=== PATIENT | female | born 1965 | race African-American/Black ===

== ENCOUNTER 2017-02-09 14:32 | Emergency (ER) | payer OTHER ==
--- NOTE | 2017-02-09 15:17 | ER Document Report ---
ED Medical Screen (RME) - General Chief Complaint: Vomiting Stated Complaint: SHORTNESS OF BREATH Mode of Arrival: Wheelchair Information source: Patient TRAVEL OUTSIDE OF THE [place] IN LAST 30 DAYS: No - HPI Onset: Other - 3 DAYS Onset/Duration: Gradual Associated Symptoms: Headache, Nausea, Sweating, Vomiting Exacerbated by: Movement Relieved by: Remaining still Similar symptoms previously: No Recently seen / treated by doctor: No - Related Data Smoking: Non-smoker Frequency of alcohol use: None Drug Abuse: None Allergies/Adverse Reactions: No Known Allergies Allergy (Unverified 02/09/17 15:08) Past Medical History - General Information source: Patient - Social History Cigarette use (# per day): No Chew tobacco use (# tins/day): No Frequency of alcohol use: None Drug Abuse: None Lives with: Spouse/Significant other Family history: None - Past Medical History Cardiac Medical History: Reports: None Renal/ Medical History: Denies: Hx Peritoneal Dialysis Review of Systems - Review of Systems Constitutional: Diaphoresis EENT: No symptoms reported Cardiovascular: No symptoms reported Gastrointestinal: See HPI, Nausea, Vomiting Genitourinary: No symptoms reported Female Genitourinary: Post menopausal Neurological/Psychological: Headaches Physical Exam - Vital signs Vitals: Temp Pulse Resp BP Pulse Ox 100.0 F 142 H 20 116/72 96 02/09/17 14:44 02/09/17 14:44 02/09/17 14:44 02/09/17 14:44 02/09/17 14:44 Interpretation: Tachycardic. No: Hypotensive, Hypoxic, Tachypneic, Febrile - General General appearance: Alert In distress: None - HEENT Head: Normocephalic Eyes: Normal Conjunctiva: Normal Ears: Normal Nasal: Normal Mouth/Lips: Normal Mucous membranes: Dry Neck: Normal, Supple - Respiratory Respiratory status: No respiratory distress - Cardiovascular Rhythm: Regular, Tachycardia - Abdominal Inspection: Normal Distension: No distension - Extremities General upper extremity: Normal inspection General lower extremity: Normal inspection. No: Tender, Edema - Neurological Neuro grossly intact: Yes Course - Vital Signs Vital signs: Temp Pulse Resp BP Pulse Ox 100.0 F 142 H 20 116/72 96 02/09/17 14:44 02/09/17 14:44 02/09/17 14:44 02/09/17 14:44 02/09/17 14:44 - Laboratory Result Diagrams: 02/09/17 15:35 02/09/17 15:35 Laboratory results interpreted by me: 02/09/17 02/09/17 15:35 15:35 WBC 14.3 H MCV 101 H MCH 34.0 H RDW 14.8 H Seg Neutrophils % 89.9 H Lymphocytes % 5.4 L Absolute Neutrophils 12.8 H Sodium 136.1 L Carbon Dioxide 21 L Direct Bilirubin 0.6 H AST 53 H
[2017-02-09 16:11] LABS: ABSOLUTE LYMPHOCYTES (AUTO) 0.8 10^3/uL (0.5-4.7); ABSOLUTE MONOCYTES (AUTO) 0.6 10^3/uL (0.1-1.4); ABSOLUTE NEUT (AUTO) 12.8 10^3/uL (1.7-8.2); BASOPHILS % (AUTO) 0.3 % (0-2); EOSINOPHILS % (AUTO) 0.1 % (0-6); HEMATOCRIT 38.1 % (36.0-47.0); HEMOGLOBIN 12.8 g/dL (12.0-15.5); HGB HCT DIFFERENCE 0.3; LYMPHOCYTES % (AUTO) 5.4 % (13-45); MEAN CORPUSCULAR HGB CONC 33.7 g/dL (32.0-36.0); MEAN CORPUSCULAR VOLUME 101 fl (80-97); MONOCYTES % (AUTO) 4.3 % (3-13); RED BLOOD COUNT 3.77 10^6/uL (3.72-5.28); RED CELL DISTRIBUTION WIDTH 14.8 % (11.5-14.0); SEGMENTED NEUTROPHILS % (AUTO) 89.9 % (42-78); WHITE BLOOD COUNT 14.3 10^3/uL (4.0-10.5)
[2017-02-09 16:20] LABS: ALANINE AMINOTRANSFERASE 41 U/L (9-52); ALBUMIN 3.8 g/dL (3.5-5.0); ALKALINE PHOSPHATASE 96 U/L (38-126); ANION GAP 13 (5-19); ASPARTATE AMINO TRANSFERASE 53 U/L (14-36); BILIRUBIN,DIRECT 0.6 mg/dL (0.0-0.4); BILIRUBIN,TOTAL 1.2 mg/dL (0.2-1.3); BLOOD UREA NITROGEN 13 mg/dL (7-20); CALCIUM 9.3 mg/dL (8.4-10.2); CARBON DIOXIDE 21 mmol/L (22-30); CHLORIDE 102 mmol/L (98-107); CREATINE KINASE 44 U/L (30-135); CREATININE RESULT 0.88 mg/dL (0.52-1.25); GLUCOSE 101 mg/dL (75-110); POTASSIUM 4.5 mmol/L (3.6-5.0); SODIUM 136.1 mmol/L (137-145); TOTAL PROTEIN 7.4 g/dL (6.3-8.2)
[2017-02-09 16:32] LABS: CREATINE KINASE MB 0.33 ng/mL (<4.55); TROPONIN I < 0.012 ng/mL
--- NOTE | 2017-02-09 17:21 | ER Document Report ---
ED General - General Mode of Arrival: Wheelchair Information source: Patient TRAVEL OUTSIDE OF THE [place] IN LAST 30 DAYS: No - HPI Onset: Other - see HPI note Associated symptoms: Nausea, Vomiting Similar symptoms previously: No Recently seen / treated by doctor: No <KYMBERLY ANN - Last Filed: 02/09/17 19:25> <FELYPRESLEYGEORGIANA - Last Filed: 02/09/17 21:11> - General Chief Complaint: Vomiting Stated Complaint: SHORTNESS OF BREATH Notes: Patient is a 51-year-old female presents to the emergency department for cough, hematemesis, nosebleeds, and dizziness. Patient states the symptoms were onset Monday and have been constant. Patient states that she tried to work and felt very dizzy like she is going to pass out. Patient states that her back and shoulders are achy. Patient states that her nose was bleeding and she is also coughing with hematemesis. Patient also complains of chills and some slight abdominal pain. Patient denies any black or tarry stools. Patient has a history of GERD, hypertension, and hiatal hernia. Patient denies any history of an ulcer and denies any use of blood thinners. Patient states she had an endoscopy in October. Patient has no known allergies. Patient's primary care physician is Dr. Sibley with Dr. Blanc' office. (KYMBERLY ANN) - Related Data Allergies/Adverse Reactions: No Known Allergies Allergy (Unverified 02/09/17 15:08) Past Medical History - General Information source: Patient - Social History Smoking Status: Current Every Day Smoker Chew tobacco use (# tins/day): No Frequency of alcohol use: Social Drug Abuse: None Lives with: Spouse/Significant other Family History: None Patient has suicidal ideation: No Patient has homicidal ideation: No - Past Medical History Cardiac Medical History: Reports: Hx Hypertension GI Medical History: Reports: Hx Gastroesophageal Reflux Disease, Hx Hiatal Hernia Musculoskeltal Medical History: Reports Hx Arthritis Surgical Hx: Negative <KYMBERLY ANN - Last Filed: 02/09/17 19:25> Review of Systems - Review of Systems Constitutional: No symptoms reported EENT: See HPI Cardiovascular: See HPI, Dizziness Respiratory: See HPI, Cough, Short of breath Gastrointestinal: See HPI, Nausea, Vomiting Genitourinary: No symptoms reported Female Genitourinary: No symptoms reported Musculoskeletal: No symptoms reported Skin: No symptoms reported Hematologic/Lymphatic: No symptoms reported Neurological/Psychological: No symptoms reported -: Yes All other systems reviewed and negative <MANUELHEATHER TRISTANINE - Last Filed: 02/09/17 19:25> Physical Exam <SETHHEATHERKYMBERLY - Last Filed: 02/09/17 19:25> <GEORGIANA GUTIERREZ - Last Filed: 02/09/17 21:11> - Vital signs Vitals: Temp Pulse Resp BP Pulse Ox 100.0 F 142 H 20 116/72 96 02/09/17 14:44 02/09/17 14:44 02/09/17 14:44 02/09/17 14:44 02/09/17 14:44 - Notes Notes: GENERAL: Alert, interacts well. No acute distress. HEAD: Normocephalic, atraumatic.Tenderness with percussion to the frontal sinuses bilaterally and to the right maxillary sinuses. EYES: Pupils equal, round, and reactive to light. Extraocular movements intact. ENT: Oral mucosa is slightly dry, tongue midline. Nares patent, no nasal septal hematoma, no active bleeding or scabs. NECK: Full range of motion. Supple. Trachea midline. LUNGS: Clear to auscultation bilaterally, no wheezes, rales, or rhonchi. No respiratory distress. HEART: Tachycardia, regular rhythm. No murmurs, gallops, or rubs. ABDOMEN: Soft, non-tender. Non-distended. Bowel sounds present in all 4 quadrants. EXTREMITIES: Moves all 4 extremities spontaneously. No edema, radial and dorsalis pedis pulses 2/4 bilaterally. No cyanosis. NEUROLOGICAL: Alert and oriented x3. Normal speech. PSYCH: Normal affect, normal mood. SKIN: Warm, dry, normal turgor. No rashes or lesions noted. (KYMBERLY ANN) Course - Laboratory Result Diagrams: 02/09/17 15:35 02/09/17 15:35 <KYMBERLY ANN - Last Filed: 02/09/17 19:25> - Laboratory Result Diagrams: 02/09/17 15:35 02/09/17 15:35 <GEORGIANA GUTIERREZ - Last Filed: 02/09/17 21:11> - Re-evaluation Re-evalutation: 02/09/17 17:55 CBC shows leukocytosis, no anemia, CMP shows low CO2 and slightly low sodium, no renal failure, minimally elevated AST at 53, cardiac enzymes negative, head CT shows maxillary sinusitis, no signs of bleeding. Chest x-ray unremarkable. Given the lack of abdominal pain and no anemia I suspect that the hematemesis is actually coming from swallowed blood from her prior nosebleeds. Given her fevers and leukocytosis I will treat her acute sinusitis as bacterial sinusitis with antibiotics. We will do a trial of IV fluids here to see if we can resolve her hypotension and tachycardia. We will also give her Zofran to prevent vomiting and try oral liquids. 02/09/17 17:56 I believe the patient is very low risk for GI bleed as there is been no melena and no bright red blood per rectum, patient's abdomen is benign, she appears to be low risk for surgical intra-abdominal pathology at this time. 02/09/17 18:57 Patient feels much better after 2 L normal saline, blood pressure and heart rate normalized, patient has tolerated 3 cups of water without any difficulty. At this time patient will be discharged to home with antiemetics, antibiotics for her maxillary sinusitis as well as nasal steroids. Patient is to return for continuing vomiting, worsening diarrhea, any continuing dizziness or any new or concerning symptoms. Patient should also return for hematemesis not associated with nosebleeds. (GEORGIANA GUTIERREZ) - Vital Signs Vital signs: Temp Pulse Resp BP Pulse Ox 100.0 F 142 H 25 H 110/81 96 02/09/17 14:44 02/09/17 14:44 02/09/17 19:01 02/09/17 19:01 02/09/17 14:44 - Laboratory Laboratory results interpreted by me: 02/09/17 02/09/17 15:35 15:35 WBC 14.3 H MCV 101 H MCH 34.0 H RDW 14.8 H Seg Neutrophils % 89.9 H Lymphocytes % 5.4 L Absolute Neutrophils 12.8 H Sodium 136.1 L Carbon Dioxide 21 L Direct Bilirubin 0.6 H AST 53 H - EKG Interpretation by Me Additional EKG results interpreted by me: 02/09/17 18:58 EKG shows sinus cardiac rate of 116, normal axis, left atrial enlargement, normal vitals, no ST segment elevations or depressions, there are T wave inversions noted in lead 3, T-wave flattening in aVF, also T-wave flattening in V5 per my interpretation. (GEORGIANA GUTIERREZ) Discharge <KYMBERLY ANN - Last Filed: 02/09/17 19:25> <GEORGIANA GUTIERREZ - Last Filed: 02/09/17 21:11> - Discharge Clinical Impression: Left maxillary sinusitis, Nausea vomiting and diarrhea, Epistaxis Condition: Stable Disposition: HOME, SELF-CARE Additional Instructions: Please use the Zofran under your tongue to help prevent vomiting. If you continue to have vomiting despite the Zofran please return to the emergency department. Please use Imodium as directed [id number] for diarrhea. You have a bacterial infection of your sinus on the left. This is likely what is causing at least some of your fever and your headache. Please take the Augmentin as directed until it is gone. Please also use the nasal steroid spray. Please return should you continue to have any blood in your vomit without having any nosebleeds. Please return should you become increasingly weak or dizzy. Please also return should you develop tarry black stools or any blood in your stool. At present I feel the blood in your vomit is likely coming from blood that syou swallowed from the nosebleed however the amount of blood increases you need to return. Prescriptions: Amox Tr/Potassium Clavulanate [Augmentin 875-125 Tablet] 1 tab PO BID 10 Days Mometasone Furoate [Nasonex] 2 spray NS Q12 #1 spray.pump Ondansetron [Zofran Odt 4 mg Tablet] 1 - 2 tab PO Q4H PRN #15 tab.rapdis PRN Reason: For Nausea/Vomiting Forms: Return to Work Referrals: ENRIQUE SIBLEY PA-C [Primary Care Provider] - Follow up in 3-5 days Scribe Attestation: 02/09/17 21:10 I personally performed the services described in the documentation, reviewed and edited the documentation which was dictated to the scribe in my presence, and it accurately records my words and actions. (GEORGIANA GUTIERREZ) Scribe Documentation - Scribe Written by Scribe:: Kymberly Ann 02/09/17 19:20 acting as scribe for :: Lety <KYMBERLY ANN - Last Filed: 02/09/17 19:25>
[2017-02-09] MEDS: NORMAL SALINE 1000 ML 1,000 ML IV PRN ×2 (17:50→17:51)
[2017-02-09] MEDS ORDERED: ONDANSETRON HCL INJ/PF 4 MG/2 ML SDV IV ONE (17:55)
[2017-02-09 19:25] VITALS: BP 110/81
--- NOTE | 2017-02-10 08:12 | EKG REPORT ---
SEVERITY:- BORDERLINE ECG - SINUS TACHYCARDIA PROBABLE LEFT ATRIAL ABNORMALITY BORDERLINE T ABNORMALITIES, INFERIOR LEADS : Confirmed by: Aba Betts MD 10-Feb-2017 08:10:28
== END 2017-02-09 19:27 | disposition home or self-care (01) ==
LOC: ER 14:32
DX: J32.0 Chronic maxillary sinusitis (principal); R11.2 Nausea with vomiting, unspecified; R19.7 Diarrhea, unspecified; R04.0 Epistaxis; R11.10 Vomiting, unspecified; R06.02 Shortness of breath; R05 Cough; R42 Dizziness and giddiness; F17.200 Nicotine dependence, unspecified, uncomplicated
CPT/HCPCS: 93005; 99285; 36415; 82553; 82550; 85025; 80053; 84484; 71010; 70450; 93010; J7030

== ENCOUNTER 2019-07-13 21:59 | Emergency (ER) | payer OTHER ==
[2019-07-13] MEDS ORDERED: MECLIZINE HCL 25 MG TABLET PO ONE (23:06)
[2019-07-13] MEDS ORDERED: NORMAL SALINE 1000 ML 1,000 ML IV ONE (23:06)
--- NOTE | 2019-07-13 23:07 | ER Document Report ---
ED General - General Chief Complaint: Vertigo Stated Complaint: DIZZY/FALL Time Seen by Provider: 07/13/19 22:51 Primary Care Provider: DIEGO PARK MD [ACTIVE STAFF] - Follow up in 3-5 days (or your primary care. ) Notes: Patient is a 54-year-old female with history of vertigo that presents to the emergency department for chief complaint of dizziness. Patient states that she was standing in her kitchen, and abruptly started feeling dizzy, to the point where she fell down to the ground, did hit her face on the ground, causing a minor abrasion to her right cheek and contusing her right shoulder. She denies loss of consciousness, but states that she felt rather dizzy at that time, did not have any nausea or vomiting associated with it. Denies any associated chest pain, shortness of breath or difficulty breathing. She states he has had vertigo in the past, but this 1 seemed to be somewhat of a worse episode. She has somewhat of a dizziness feeling now but it is much improved from earlier. Denies any headache at this time, she states she is been congested recently, and had ear fullness recently as well. She also reports having some pain in her right shoulder she currently rates as a 3 out of 10 describes as a dull ache, not requesting any pain medication at this time. Past Medical History: Hypertension, vertigo Past Surgical History: Denies surgical history Social History: Admits to smoking cigarettes, denies alcohol or drug use. Family History: Reviewed and noncontributory for presenting illness Allergies: Reviewed, see documented allergy list. REVIEW OF SYSTEMS: Other than noted above, the 12 point review of systems was reviewed with the patient and were negative, all pertinent findings are included in the HPI. PHYSICAL EXAMINATION: Vital signs reviewed, nursing noted reviewed. GENERAL: Well-appearing, well-nourished and in no acute distress. HEAD: normocephalic. Superficial abrasion noted to the patient's, mild tenderness palpation, without step-off or deformity. EYES: Eyes appear normal, extraocular movements intact, sclera anicteric, conjunctiva are normal. ENT: nares patent, oropharynx clear without exudates. Moist mucous membranes. Mild inner ear effusions bilaterally, no bulging or erythema to the tympanic membranes bilaterally. NECK: Normal range of motion, supple without lymphadenopathy LUNGS: Breath sounds clear to auscultation bilaterally and equal. No wheezes rales or rhonchi. HEART: Regular rate and rhythm without murmurs ABDOMEN: Soft, nontender, normoactive bowel sounds. No rebound, guarding, or rigidity. No masses appreciated. EXTREMITIES: Mild right shoulder tenderness to palpation without gross deformity, she overall has good range of motion of her right shoulder, no tenderness over the clavicle. The rest the patient's extremity exam is grossly unremarkable. NEUROLOGICAL: No focal neurological deficits. Moves all extremities spontaneously Motor and sensory grossly intact on exam. PSYCH: Normal mood, normal affect. SKIN: Warm, Dry, normal turgor, no rashes or lesions noted on exposed skin TRAVEL OUTSIDE OF THE [place] IN LAST 30 DAYS: No - Related Data Allergies/Adverse Reactions: No Known Allergies Allergy (Verified 08/15/17 09:41) Past Medical History - Social History Smoking Status: Current Every Day Smoker Chew tobacco use (# tins/day): No Frequency of alcohol use: Occasional Drug Abuse: None Family History: None Patient has suicidal ideation: No Patient has homicidal ideation: No - Past Medical History Cardiac Medical History: Reports: Hx Hypertension Renal/ Medical History: Denies: Hx Peritoneal Dialysis GI Medical History: Reports: Hx Gastroesophageal Reflux Disease, Hx Hiatal Hernia Musculoskeletal Medical History: Reports Hx Arthritis - Immunizations Hx Diphtheria, Pertussis, Tetanus Vaccination: Yes Physical Exam - Vital signs Vitals: Pulse Ox 100 07/13/19 22:00 Course - Re-evaluation Re-evalutation: Patient seen and examined vital signs reviewed. Laboratory data and/or imaging were ordered as appropriate for the patient's presenting symptoms and complaint, with consideration of any critical or life threatening conditions that may be associated with their obtained history and exam as noted above. Patient was treated with IV fluids, and meclizine Results were reviewed when available and demonstrated negative CT imaging of the head, negative chest x-ray, blood work was unremarkable as well, as was UA. On exam patient was noted to have some mild bilateral inner ear effusions, which likely contributed to the patient's vertigo symptoms, low suspicion for central cause of vertigo. The patient was re-evaluated and was stable and improved, complaining of mild headache, was dosed with Tylenol for this. Is requesting work note. Evaluation was most consistent with dizziness, closed head injury. Results were discussed with the patient at this point, after careful consideration I feel that that patient can be discharged from the emergency department, the patient was educated treatments and reasons to return to the emergency department based on their presumed diagnosis as noted above, they were advised to followup with a primary care physician in 2-3 days. Patient was agr eeable to plan of care. *Note is created using voice recognition software and may contain spelling, syntax or grammatical errors. - Vital Signs Vital signs: Temp Pulse Resp BP Pulse Ox 97.9 F 72 17 136/83 H 99 07/13/19 22:13 07/13/19 22:13 07/13/19 23:01 07/13/19 23:01 07/13/19 23:01 - Laboratory Result Diagrams: 07/13/19 23:40 07/13/19 23:40 Laboratory results interpreted by me: 07/13/19 07/13/19 07/14/19 23:40 23:40 00:29 MCV 100 H Baso % (Auto) 2.1 H AST 51 H Urine Blood SMALL H - EKG Interpretation by Me Additional EKG results interpreted by me: EKG demonstrates sinus rhythm with a ventricular rate of 65 bpm, normal axis, normal intervals, no evidence of acute ischemia in this EKG, this is compared with a prior EKG from 02/09/2017, without significant change. Discharge - Discharge Clinical Impression: Dizziness Closed head injury Qualifiers: Encounter type: initial encounter Qualified Code(s): S09.90XA - Unspecified injury of head, initial encounter Condition: Stable Disposition: HOME, SELF-CARE Instructions: Dizziness ([facility]) Prescriptions: Meclizine HCl [Antivert 25 mg Tablet] 25 mg PO Q8H PRN #20 tablet PRN Reason: Dizziness Fluticasone Propionate [Flonase Nasal [place] 50 Mcg/[place] 16 gm] 1 spray NASL Q12 #1 inhaler Forms: Return to Work Referrals: DIEGO PARK MD [ACTIVE STAFF] - Follow up in 3-5 days (or your primary care. )
[2019-07-14 00:07] LABS: ABSOLUTE BASOPHILS # (AUTO) 0.1 10^3/uL (0.0-0.2); ABSOLUTE EOSINOPHILS # (AUTO) 0.1 10^3/uL (0.0-0.6); ABSOLUTE LYMPHOCYTES (AUTO) 2.7 10^3/uL (0.5-4.7); ABSOLUTE MONOCYTES (AUTO) 0.5 10^3/uL (0.1-1.4); ABSOLUTE NEUT (AUTO) 2.8 10^3/uL (1.7-8.2); BASOPHILS % (AUTO) 2.1 % (0-2); EOSINOPHILS % (AUTO) 0.9 % (0-6); HEMATOCRIT 43.9 % (36.0-47.0); HEMOGLOBIN 14.6 g/dL (12.0-15.5); LYMPHOCYTES % (AUTO) 43.5 % (13-45); MEAN CORPUSCULAR HEMOGLOBIN 33.4 pg (27.0-33.4); MEAN CORPUSCULAR HGB CONC 33.2 g/dL (32.0-36.0); MEAN CORPUSCULAR VOLUME 100 fl (80-97); MONOCYTES % (AUTO) 7.8 % (3-13); PLATELET COUNT 255 10^3/uL (150-450); RED BLOOD COUNT 4.38 10^6/uL (3.72-5.28); RED CELL DISTRIBUTION WIDTH 13.3 % (11.5-14.0); SEGMENTED NEUTROPHILS % (AUTO) 45.7 % (42-78); TOTAL CELLS COUNTED % (AUTO) 100 %; WHITE BLOOD COUNT 6.2 10^3/uL (4.0-10.5)
[2019-07-14 00:19] LABS: ALBUMIN 4.1 g/dL (3.5-5.0); ALKALINE PHOSPHATASE 83 U/L (38-126); ANION GAP 8 (5-19); ASPARTATE AMINO TRANSFERASE 51 U/L (14-36); BILIRUBIN,DIRECT 0.1 mg/dL (0.0-0.4); BLOOD UREA NITROGEN 8 mg/dL (7-20); CALCIUM 9.7 mg/dL (8.4-10.2); CARBON DIOXIDE 24 mmol/L (22-30); CHLORIDE 107 mmol/L (98-107); GLUCOSE 78 mg/dL (75-110); POTASSIUM 4.3 mmol/L (3.6-5.0); TOTAL PROTEIN 7.7 g/dL (6.3-8.2)
--- NOTE | 2019-07-14 00:29 | RADIOLOGY REPORT (SQ) ---
CLINICAL HISTORY: VERTIGO, RIGHT FACIAL INJURY COMPARISON: None. TECHNIQUE: CT HEAD WITHOUT IV CONTRAST on 07/13/2019 11:06 PM CDT This exam was performed according to our departmental dose-optimization program, which includes automated exposure control, adjustment of the mA and/or kV according to patient size and/or use of iterative reconstruction technique. FINDINGS: There is no acute hemorrhage, mass effect or midline shift. Garsia-white differentiation is preserved. There is no hydrocephalus. There is no significant volume loss for age. There are mild patchy hypodensities within the periventricular and subcortical white matter, consistent with microangiopathic ischemic changes. The calvarium is intact. Orbits and globes are unremarkable. There is a small mucous retention cyst in the anterior left maxillary sinus. Mastoid air cells are clear. IMPRESSION: No acute intracranial findings.
--- NOTE | 2019-07-14 00:29 | RADIOLOGY REPORT (SQ) ---
CLINICAL HISTORY: NEAR SYNCOPE COMPARISON: None. TECHNIQUE: XR CHEST 1 VIEW 07/13/2019 11:06 PM CDT FINDINGS: The heart is enlarged. Lungs are clear without consolidation, atelectasis, mass or edema. There is no pleural effusion. There is no pneumothorax. There are no acute osseous findings. IMPRESSION: Clear lungs.
[2019-07-14 00:44] LABS: APPEARANCE,URINE CLEAR; BILIRUBIN,URINE NEGATIVE (NEGATIVE); COLOR,URINE STRAW; GLUCOSE, URINE NEGATIVE (NEGATIVE); KETONES,URINE NEGATIVE (NEGATIVE); LEUKOCYTE ESTERASE,URINE NEGATIVE (NEGATIVE); NITRITE,URINE NEGATIVE (NEGATIVE); PROTEIN,URINE NEGATIVE (NEGATIVE); URINE SPECIFIC GRAVITY 1.003; UROBILINOGEN,URINE NEGATIVE mg/dL (<2.0)
[2019-07-14] MEDS ORDERED: ACETAMINOPHEN 325 MG TABLET PO ONE (01:05)
[2019-07-14 01:33] VITALS: BP 120/66
--- NOTE | 2019-07-14 08:50 | EKG REPORT ---
SEVERITY:- ABNORMAL ECG - SINUS RHYTHM PROBABLE LEFT ATRIAL ABNORMALITY PROBABLE ANTEROSEPTAL INFARCT, AGE INDETERM : Confirmed by: Jaleesa Sanders MD 14-Jul-2019 08:49:45
== END 2019-07-14 01:20 | disposition home or self-care (01) ==
LOC: ER 21:59
DX: R42 Dizziness and giddiness (principal); S40.011A Contusion of right shoulder, initial encounter; S00.81XA Abrasion of other part of head, initial encounter; R51 Headache; W18.39XA Other fall on same level, initial encounter; Y93.G3 Activity, cooking and baking; I10 Essential (primary) hypertension; F17.210 Nicotine dependence, cigarettes, uncomplicated
CPT/HCPCS: 93005; 36415; 85025; 80053; 81001; 84484; 71045; 70450; 93010; J7030; 96360; 99284

== ENCOUNTER 2020-04-06 22:13 | Emergency (ER) | payer OTHER ==
--- NOTE | 2020-04-06 23:17 | ER Document Report ---
ED Medical Screen (RME) - General Chief Complaint: Chest Pain Stated Complaint: CHEST PAIN Time Seen by Provider: 04/06/20 23:12 Primary Care Provider: ENRIQUE ROMAN PA-C [Primary Care Provider] - Follow up as needed Mode of Arrival: Medic Information source: Patient Notes: 54-year-old female patient presents the emergency department chief complaint of chest pain. Patient reports pain started about 1 hour prior to arrival. She reports associated nausea with shortness of breath. She states the pain was located in the middle of her chest and felt like a heavy pressure. She states during this time she was sitting in a hot house and feel like she got overheated. She states that as soon as EMS arrived and took her outside she felt much better. She denies any chest pain currently. Exam: Heart sounds S1-S2 present, normal rate, normal rhythm. I have greeted and performed a rapid initial assessment of this patient. A comprehensive ED assessment and evaluation of the patient, analysis of test results and completion of the medical decision making process will be conducted by additional ED providers. I have specifically instructed the patient or famil y members with the patient to immediately return to any nursing staff should anything change in the patient's condition or with their chief complaint. TRAVEL OUTSIDE OF THE [place] IN LAST 30 DAYS: No - Related Data Allergies/Adverse Reactions: No Known Allergies Allergy (Verified 08/15/17 09:41) Past Medical History - Social History Family history: None - Past Medical History Cardiac Medical History: Reports: Hx Hypertension Renal/ Medical History: Denies: Hx Peritoneal Dialysis GI Medical History: Reports: Hx Gastroesophageal Reflux Disease, Hx Hiatal Hernia Musculoskeltal Medical History: Reports Hx Arthritis - Immunizations Hx Diphtheria, Pertussis, Tetanus Vaccination: Yes Physical Exam - Vital signs Vitals: Temp Pulse Resp BP Pulse Ox 97.9 F 73 16 140/76 H 97 04/06/20 22:48 04/06/20 22:48 04/06/20 22:48 04/06/20 22:48 04/06/20 22:48 Course - Vital Signs Vital signs: Temp Pulse Resp BP Pulse Ox 97.9 F 73 16 140/76 H 97 04/06/20 22:48 04/06/20 22:48 04/06/20 22:48 04/06/20 22:48 04/06/20 22:48 Doctor's Discharge - Discharge Referrals: ENRIQUE ROMAN PA-C [Primary Care Provider] - Follow up as needed
--- NOTE | 2020-04-06 23:58 | RADIOLOGY REPORT (SQ) ---
EXAM DESCRIPTION: XR CHEST 1 VIEW COMPLETED DATE/TME: 04/06/2020 23:16 CLINICAL HISTORY: 54 years, Female, chest pain COMPARISON: Prior study from 07/13/2019 NUMBER OF VIEWS: One TECHNIQUE: Single frontal view of the chest was obtained portably LIMITATIONS: None. FINDINGS: Cardiopericardial silhouette appears enlarged. Mediastinal contours are stable. Lungs are clear. No pleural effusion or pneumothorax. IMPRESSION: No acute disease. Suspect cardiomegaly. copyright 2010 [employer]- All Rights Reserved
--- NOTE | 2020-04-07 01:07 | EKG REPORT ---
SEVERITY:- ABNORMAL ECG - BORDERLINE T ABNORMALITIES, INFERIOR LEADS SINUS RHYTM WITH SHORT pr.nO PRE-EXCITAATION : Confirmed by: Jaleesa Sanders MD 07-Apr-2020 01:06:45
[2020-04-07 03:44] LABS: ABSOLUTE BASOPHILS # (AUTO) 0.1 10^3/uL (0.0-0.2); ABSOLUTE EOSINOPHILS # (AUTO) 0.1 10^3/uL (0.0-0.6); ABSOLUTE LYMPHOCYTES (AUTO) 2.1 10^3/uL (0.5-4.7); ABSOLUTE MONOCYTES (AUTO) 0.5 10^3/uL (0.1-1.4); ABSOLUTE NEUT (AUTO) 3.6 10^3/uL (1.7-8.2); BASOPHILS % (AUTO) 1.4 % (0-2); EOSINOPHILS % (AUTO) 1.6 % (0-6); HEMATOCRIT 38.2 % (36.0-47.0); HEMOGLOBIN 12.7 g/dL (12.0-15.5); LYMPHOCYTES % (AUTO) 32.5 % (13-45); MEAN CORPUSCULAR HEMOGLOBIN 32.9 pg (27.0-33.4); MEAN CORPUSCULAR HGB CONC 33.2 g/dL (32.0-36.0); MEAN CORPUSCULAR VOLUME 99 fl (80-97); MONOCYTES % (AUTO) 8.5 % (3-13); PLATELET COUNT 297 10^3/uL (150-450); RED BLOOD COUNT 3.85 10^6/uL (3.72-5.28); RED CELL DISTRIBUTION WIDTH 14.5 % (11.5-14.0); TOTAL CELLS COUNTED % (AUTO) 100 %; WHITE BLOOD COUNT 6.3 10^3/uL (4.0-10.5)
[2020-04-07 03:47] LABS: ALBUMIN 3.6 g/dL (3.5-5.0); ALKALINE PHOSPHATASE 154 U/L (38-126); ANION GAP 5 (5-19); ASPARTATE AMINO TRANSFERASE 302 U/L (14-36); BILIRUBIN,TOTAL 0.4 mg/dL (0.2-1.3); BLOOD UREA NITROGEN 17 mg/dL (7-20); CARBON DIOXIDE 21 mmol/L (22-30); CHLORIDE 113 mmol/L (98-107); GLUCOSE 90 mg/dL (75-110); POTASSIUM 4.6 mmol/L (3.6-5.0); TOTAL PROTEIN 6.9 g/dL (6.3-8.2)
--- NOTE | 2020-04-07 05:25 | ER Document Report ---
Entered by JERRY DUVALL SCRIBE 04/07/20 0442 Acting as scribe for:ARGELIA BALDWIN DO ED General - General Chief Complaint: Chest Pain Stated Complaint: CHEST PAIN Time Seen by Provider: 04/06/20 23:12 Primary Care Provider: ENRIQUE ROMAN PA-C [Primary Care Provider] - Follow up as needed Mode of Arrival: Medic Information source: Patient Notes: This 54 year old female patient with a history of HTN, current smoker brought in by EMS from home presents to the ED today with complaints of sudden onset chest pain with associated shortness of breath that occurred just prior to arrival. Patient states that she was taking a nap in her chair and when she woke up, the power was out and the house was hot. She states she developed pain to the center of her chest that felt like a pressure and did not radiate. She then called her son who called EMS. By the time EMS arrived x30 minutes later per patient, the pain was gone. She states that she did receive Aspirin from EMS and is pain-free at this time. Denies similar pain in the past. She reports that she takes medications for anxiety and depression. Denies use or recreational drugs or C OVID-19 exposure. TRAVEL OUTSIDE OF THE [place] IN LAST 30 DAYS: No - Related Data Allergies/Adverse Reactions: No Known Allergies Allergy (Verified 08/15/17 09:41) Home Medications: lisinopril,gabapentin, omeprazole, inhalers prn, ibuprofen prn,. celebrex Past Medical History - General Information source: Patient - Social History Smoking Status: Current Every Day Smoker Cigarette use (# per day): Yes Chew tobacco use (# tins/day): No Smoking Education Provided: No Drug Abuse: None Lives with: Alone Family History: Reviewed & Not Pertinent Patient has suicidal ideation: No Patient has homicidal ideation: No - Past Medical History Cardiac Medical History: Reports: Hx Hypertension GI Medical History: Reports: Hx Gastroesophageal Reflux Disease, Hx Hiatal Hernia Musculoskeletal Medical History: Reports Hx Arthritis Psychiatric Medical History: Reports: Hx Anxiety, Hx Depression Past Surgical History: Reports: Hx Tubal Ligation - Immunizations Hx Diphtheria, Pertussis, Tetanus Vaccination: Yes Review of Systems - Review of Systems Constitutional: No symptoms reported EENT: No symptoms reported Cardiovascular: See HPI, Chest pain Respiratory: See HPI, Short of breath Gastrointestinal: No symptoms reported Genitourinary: No symptoms reported Female Genitourinary: No symptoms reported Musculoskeletal: See HPI, Leg swelling Skin: No symptoms reported Hematologic/Lymphatic: No symptoms reported Neurological/Psychological: No symptoms reported -: Yes All other systems reviewed and negative Physical Exam - Vital signs Vitals: Temp Pulse Resp BP Pulse Ox 97.9 F 73 16 140/76 H 97 04/06/20 22:48 04/06/20 22:48 04/06/20 22:48 04/06/20 22:48 04/06/20 22:48 - General General appearance: Appears well, Alert In distress: None - HEENT Head: Normocephalic, Atraumatic Eyes: Normal Pupils: PERRL - Respiratory Respiratory status: No respiratory distress Chest status: Nontender Breath sounds: Normal Chest palpation: Normal - Cardiovascular Rhythm: Regular Heart sounds: Normal auscultation Murmur: No Friction rub: No Gallop: None auscultated - Abdominal Inspection: Normal Distension: No distension Bowel sounds: Normal Tenderness: Nontender - Abdomen soft Organomegaly: No organomegaly - Back Back: Normal, Nontender - Extremities General upper extremity: Normal inspection General lower extremity: Edema - Trace peripheral edema - Neurological Neuro grossly intact: Yes Orientation: AAOx4 [place] Coma Scale Eye Opening: Spontaneous [place] Coma Scale Verbal: Oriented [place] Coma Scale Motor: Obeys Commands [place] Coma Scale Total: 15 - Psychological Associated symptoms: Normal affect, Normal mood - Skin Skin Temperature: Warm Skin Moisture: Dry Skin Color: Normal Course - Re-evaluation Re-evalutation: 04/07/20 05:46 MDM 54 year old female - smoker and postmenopausal and htn are her heart disease risks and due to this we discussed staying here and she is not interested in this. We will check a second troponin and she will follow up if negative. - Vital Signs Vital signs: Temp Pulse Resp BP Pulse Ox 97.9 F 73 16 140/76 H 100 04/06/20 23:13 04/06/20 22:48 04/06/20 22:48 04/06/20 22:48 04/07/20 04:55 - Laboratory Result Diagrams: 04/07/20 03:20 04/07/20 03:20 Laboratory results interpreted by me: 04/07/20 04/07/20 03:20 03:20 MCV 99 H RDW 14.5 H Chloride 113 H Carbon Dioxide 21 L AST 302 H ALT 81 H Alkaline Phosphatase 154 H - Diagnostic Test Radiology reviewed: Reports reviewed - EKG Interpretation by Me EKG shows normal: Sinus rhythm - NSR NL [place] 70 BPM Repolarization abnromality without st elevation or depression my interpretation. Discharge - Discharge Clinical Impression: Chest pain Qualifiers: Chest pain type: unspecified Qualified Code(s): R07.9 - Chest pain, unspecified Condition: Stable Disposition: HOME, SELF-CARE Instructions: Chest Pain of Unclear Cause (OM), Aspirin (Cardiac) ([facility]) Additional Instructions: Call Dr. Ziegler for follow up. Rest. Stop smoking. Take 162 mg - 2 baby aspirin - daily until follow up. Return here for any problems or any concerns. Forms: Smoking Cessation Education Referrals: ENRIQUE ROMAN PA-C [Primary Care Provider] - Follow up as needed I personally performed the services described in the documentation, reviewed and edited the documentation which was dictated to the scribe in my presence, and it accurately records my words and actions.
[2020-04-07 07:15] VITALS: BP 118/66
--- NOTE | 2020-04-07 07:25 | ER Document Report ---
Doctor's Note Notes: 04/07/20 07:24 Patient was signed out to me by Dr. Laurent. A second troponin was pending. Instructions were that if the troponin was negative, then to print the instructions he had written the patient will follow-up with Dr. Ziegler. The repeat troponin was undetectable.
== END 2020-04-07 07:41 | disposition home or self-care (01) ==
LOC: ER 22:13
DX: R07.9 Chest pain, unspecified (principal); R06.02 Shortness of breath; M79.89 Other specified soft tissue disorders; R60.0 Localized edema; I10 Essential (primary) hypertension; F17.210 Nicotine dependence, cigarettes, uncomplicated; K21.9 Gastro-esophageal reflux disease without esophagitis; M19.90 Unspecified osteoarthritis, unspecified site; Z79.1 Long term (current) use of non-steroidal anti-inflammatories (NSAID); Z79.899 Other long term (current) drug therapy
CPT/HCPCS: 36415; 71045; 80053; 84484; 85025; 93005; 93010; 99285

== ENCOUNTER → 2020-06-02 | Outpatient (CLI) | payer OTHER ==
[2020-06-02 14:38] LABS: ABSOLUTE BASOPHILS # (AUTO) 0.1 10^3/uL (0.0-0.2); ABSOLUTE EOSINOPHILS # (AUTO) 0.1 10^3/uL (0.0-0.6); ABSOLUTE LYMPHOCYTES (AUTO) 2.1 10^3/uL (0.5-4.7); ABSOLUTE MONOCYTES (AUTO) 0.4 10^3/uL (0.1-1.4); ABSOLUTE NEUT (AUTO) 3.2 10^3/uL (1.7-8.2); BASOPHILS % (AUTO) 1.7 % (0-2); EOSINOPHILS % (AUTO) 1.1 % (0-6); HEMATOCRIT 38.2 % (36.0-47.0); HEMOGLOBIN 12.9 g/dL (12.0-15.5); LYMPHOCYTES % (AUTO) 36.2 % (13-45); MEAN CORPUSCULAR HEMOGLOBIN 32.3 pg (27.0-33.4); MEAN CORPUSCULAR HGB CONC 33.8 g/dL (32.0-36.0); MEAN CORPUSCULAR VOLUME 96 fl (80-97); MONOCYTES % (AUTO) 7.5 % (3-13); SEGMENTED NEUTROPHILS % (AUTO) 53.5 % (42-78); TOTAL CELLS COUNTED % (AUTO) 100 %; WHITE BLOOD COUNT 5.9 10^3/uL (4.0-10.5)
--- NOTE | 2020-06-02 14:46 | RADIOLOGY REPORT (SQ) ---
EXAM DESCRIPTION: CHEST PA/LATERAL IMAGES COMPLETED DATE/TIME: 06/02/2020 2:32 pm REASON FOR STUDY: PRE-OP COMPARISON: 04/06/2020. EXAM PARAMETERS: NUMBER OF VIEWS: two views TECHNIQUE: Digital Frontal and Lateral radiographic views of the chest acquired. RADIATION DOSE: NA LIMITATIONS: none FINDINGS: LUNGS AND PLEURA: No opacities, masses or pneumothorax. No pleural effusion. MEDIASTINUM AND HILAR STRUCTURES: No masses or contour abnormalities. HEART AND VASCULAR STRUCTURES: Stable mild cardiomegaly. BONES: No acute findings. HARDWARE: None in the chest. OTHER: No other significant finding. IMPRESSION: STABLE MILD CARDIOMEGALY. NO ACUTE RADIOGRAPHIC FINDING IN THE CHEST. TECHNICAL DOCUMENTATION: JOB ID: [id number] 2010 [employer]- All Rights Reserved Reading location - IP/workstation name: [email or web address]
[2020-06-02 14:49] LABS: APPEARANCE,URINE SLIGHTLY-CLOUDY; BILIRUBIN,URINE NEGATIVE (NEGATIVE); COLOR,URINE YELLOW; GLUCOSE, URINE NEGATIVE (NEGATIVE); KETONES,URINE NEGATIVE (NEGATIVE); LEUKOCYTE ESTERASE,URINE MODERATE (NEGATIVE); NITRITE,URINE POSITIVE (NEGATIVE); PROTEIN,URINE NEGATIVE (NEGATIVE); URINE SPECIFIC GRAVITY 1.015; UROBILINOGEN,URINE NEGATIVE mg/dL (<2.0)
[2020-06-02 14:55] LABS: ANION GAP 9 (5-19); BLOOD UREA NITROGEN 22 mg/dL (7-20); CALCIUM 9.2 mg/dL (8.4-10.2); CARBON DIOXIDE 21 mmol/L (22-30); CHLORIDE 107 mmol/L (98-107); GLUCOSE 83 mg/dL (75-110); POTASSIUM 4.3 mmol/L (3.6-5.0)
[2020-06-02 15:17] LABS: PLATELET COUNT 227 10^3/uL (150-450)
--- NOTE | 2020-06-02 17:08 | EKG REPORT ---
SEVERITY:- BORDERLINE ECG - SINUS RHYTHM PROBABLE LEFT ATRIAL ABNORMALITY BORDERLINE T WAVE ABNORMALITIES : Confirmed by: Jaleesa Sanders MD 02-Jun-2020 17:07:33
== END ==
LOC: OD 13:35
PROVIDERS: ATTEND Orthopaedic Surgery
DX: Z01.810 Encounter for preprocedural cardiovascular examination (principal); Z01.811 Encounter for preprocedural respiratory examination; Z01.812 Encounter for preprocedural laboratory examination; M17.11 Unilateral primary osteoarthritis, right knee
CPT/HCPCS: 36415; 71046; 80048; 81001; 85025; 93005; 93010

== ENCOUNTER 2020-06-29 06:39 | Day surgery (SDC) | payer OTHER ==
[~2020-06-29 06:39] MED LIST: BUPIVACAINE INJ/PF LIPOSOME/PF 266 MG/20 ML SDV INJ PRN; CEFAZOLIN 1 GM/D5W RTU 1 GM/50 ML RTUPB IV ONE; CEFAZOLIN INJ 1 GM VIAL IV PRN; IBUPROFEN 800 MG in NORMAL SALINE 250 ML IV PRN; LACTATED RINGERS 1000 ML IV PRN; LIDOCAINE 0.5% INJ-PF (5 MG/ML) 50 ML SDV SUBCUT PRN; OXYCODONE HCL SR 10 MG TABLET PO ONE; OXYCODONE HCL SR 10 MG TABLET PO PRN; PANTOPRAZOLE SODIUM 20 MG TABLET.DR PO ONE; PANTOPRAZOLE SODIUM 20 MG TABLET.DR PO PRN; VANCOMYCIN HCL 1,000 MG in DEXTROSE 5%-WATER 250 ML IV PRN
[2020-06-29] MEDS ORDERED: MIDAZOLAM 2 MG/2 ML INJ ONE (09:13)
[2020-06-29] MEDS ORDERED: PROPOFOL INJ 200 MG/20 ML VIAL IV ONE (09:13)
[2020-06-29] MEDS ORDERED: TRANEXAMIC ACID INJ/PF 1,000 MG/10 ML SDV ONE (09:14)
[2020-06-29] MEDS ORDERED: ROPIVACAINE HCL 0.2% INJ/PF (2 MG/ML) 20 ML SDV ONE (09:30)
[2020-06-29] MEDS ORDERED: PROMETHAZINE HCL INJ 25 MG/1 ML VIAL IV PRN ×2 (10:16)
[2020-06-29] MEDS ORDERED: MEPERIDINE HCL/PF INJ 25 MG/1 ML DISP.SYRIN IV PRN (10:16)
[2020-06-29] MEDS ORDERED: DIPHENHYDRAMINE HCL 50 MG/ML VIAL IV PRN ×2 (10:16→10:33)
--- NOTE | 2020-06-29 10:32 | Operative Report ---
Operative Report DATE OF SURGERY: 06/29/20 PREOPERATIVE DIAGNOSIS: Left knee arthritis OPERATION: Left knee arthroplasty SURGEON: KIRA ABERNATHY ANESTHESIA: Spinal TISSUE REMOVED OR ALTERED: Bone to pathology ESTIMATED BLOOD LOSS: 75 PROCEDURE: Implants used: Femur: Osman triathlon size 4 CR uncemented femur Tibia: 3 uncemented tibia Tibial liner: 9 mm CS insert Patella: Her oval patella uncemented Procedure with the patient supine on the operating table the [] the limb is prepped and draped in a sterile fashion. The limb was elevated for exsanguination and the tourniquet inflated to 280 torr. A standard midline median parapatellar approach the knee is taken. Access is gained to the femoral canal through the intercondylar notch. Intramedullary alignment in strumentation used to resect 10 mm of distal femur in 5 of valgus. Sizing guide indicated a size 4 femur. Appropriate cutting jig is then used to fashion anterior posterior and chamfer cuts. A trial reduction femurs performed and this is judged to be adequate. Attention was next turned to the tibia. Using an extra medullary alignment system 9 millimeters was resected off the lateral tibial plateau. This is sized to a size 3 tibia. A trial reduction was now performed with a 4 femur and a D tibia using a 9 millimeters spacer. It is full extension and central patellofemoral tracking. The articular surface the patella was next resected using an oscillating saw. All trial implants were removed. Both implants are impacted into position. The tourniquet was deflated hemostasis obtained the wound is then closed in layers using interrupted Vicryl followed by makeda. A sterile compressive dressing was applied and the patient returned to recovery room in satisfactory condition.
[2020-06-29] MEDS ORDERED: ZOLPIDEM TARTRATE 5 MG TABLET PO PRN (10:33)
[2020-06-29] MEDS ORDERED: ONDANSETRON HCL INJ/PF 4 MG/2 ML SDV IV PRN (10:33)
[2020-06-29] MEDS ORDERED: ONDANSETRON 4 MG TAB.RAPDIS PO PRN (10:33)
[2020-06-29] MEDS ORDERED: MAG HYDROX/AL HYDROX/SIMETH SUSP 30 ML UDCUP PO PRN (10:33)
[2020-06-29] MEDS ORDERED: RINGERS SOLUTION,LACTATED 1,000 ML IV PRN (10:33)
[2020-06-29] MEDS ORDERED: OXYCODONE HCL IR 5 MG TABLET PO PRN (10:33)
[2020-06-29] MEDS ORDERED: ACETAMINOPHEN 325 MG TABLET PO PRN (10:33)
--- NOTE | 2020-06-29 11:42 | RADIOLOGY REPORT (SQ) ---
EXAM DESCRIPTION: KNEE LEFT 2 VIEWS IMAGES COMPLETED DATE/TIME: 06/29/2020 11:35 am REASON FOR STUDY: Post OP -Long Cassette in PACU M17.11 UNILATERAL PRIMARY OSTEOARTHRITIS, RIGHT KN EE COMPARISON: None. NUMBER OF VIEWS: Two view(s). TECHNIQUE: Digital radiographic images of the left knee post-procedure. LIMITATIONS: None. FINDINGS: BONES: No worrisome or unexpected findings post-procedure. DEVICE: Total knee arthroplasty. SOFT TISSUES: No worrisome findings. Expected postoperative soft tissue changes. IMPRESSION: SATISFACTORY POSTOPERATIVE LEFT KNEE. TECHNICAL DOCUMENTATION: JOB ID: [id number] 2010 [employer]- All Rights Reserved Reading location - IP/workstation name: [email or web address]
[2020-06-29] MEDS: IBUPROFEN 800 MG in NORMAL SALINE 250 ML IV SCH ×2 (13:42→23:10)
[2020-06-29] MEDS: TRANEXAMIC ACID INJ/PF 1,000 MG/10 ML SDV IV ONE ×2 (13:42→17:49)
[2020-06-29] MEDS ORDERED: PHENYLEPHRINE HCL INJ/PF 10 MG/1 ML SDV ONE (17:05)
[2020-06-29] MEDS: OXYCODONE HCL SR 10 MG TABLET PO SCH (17:11)
[2020-06-29] MEDS: SENNOSIDES/DOCUSATE 8.6-50 MG 1 EACH TABLET PO SCH (17:11)
[2020-06-29] MEDS ORDERED: TRANEXAMIC ACID INJ/PF 1,000 MG/10 ML SDV IV ONE (18:00)
[2020-06-29] MEDS ORDERED: PANTOPRAZOLE SODIUM 40 MG TABLET.DR PO SCH (22:00)
[2020-06-29] MEDS ORDERED: OXYCODONE HCL SR 10 MG TABLET PO SCH (22:00)
[2020-06-29] MEDS: GABAPENTIN 400 MG CAPSULE PO SCH (23:09)
[2020-06-30] MEDS: OXYCODONE HCL SR 10 MG TABLET PO SCH (06:01)
[2020-06-30] MEDS: GABAPENTIN 400 MG CAPSULE PO SCH (06:01)
[2020-06-30] MEDS: IBUPROFEN 800 MG in NORMAL SALINE 250 ML IV SCH (06:02)
[2020-06-30 06:56] LABS: HEMATOCRIT 34.3 % (36.0-47.0); HEMOGLOBIN 11.7 g/dL (12.0-15.5); MEAN CORPUSCULAR HEMOGLOBIN 32.8 pg (27.0-33.4); MEAN CORPUSCULAR HGB CONC 34.2 g/dL (32.0-36.0); MEAN CORPUSCULAR VOLUME 96 fl (80-97); PLATELET COUNT 192 10^3/uL (150-450); RED BLOOD COUNT 3.57 10^6/uL (3.72-5.28); RED CELL DISTRIBUTION WIDTH 13.4 % (11.5-14.0); WHITE BLOOD COUNT 6.6 10^3/uL (4.0-10.5)
[2020-06-30 07:14] LABS: ANION GAP 6 (5-19); BLOOD UREA NITROGEN 15 mg/dL (7-20); CALCIUM 8.7 mg/dL (8.4-10.2); CARBON DIOXIDE 25 mmol/L (22-30); CHLORIDE 107 mmol/L (98-107); GLUCOSE 116 mg/dL (75-110); POTASSIUM 4.4 mmol/L (3.6-5.0)
--- NOTE | 2020-06-30 07:14 | PDOC DISCHARGE SUMMARY ---
Impression - Admit/DC Date/PCP Admission Date/Primary Care Provider: ENRIQUE ROMAN PA-C Discharge Date: 06/30/20 - Discharge Diagnosis (1) Arthritis of left knee Is this a current diagnosis for this admission?: Yes - Additional Information Resuscitation Status: Full Code Discharge Diet: Regular Discharge Activity: Balance Activity w/Rest, No Driving, No tub bath Referrals: KIRA ABERNATHY MD [ACTIVE STAFF] - 07/14/20 10:30 am Home Medications: Albuterol Sulfate [Proair Hfa Inhalation Aerosol 8.5 gm Mdi] 1 puff IH Q4 PRN 06/25/20 Cyanocobalamin (Vitamin B-12) [B-12] 1,000 mcg PO QHS 06/25/20 Fluoxetine HCl [Prozac] 20 mg PO PRN PRN 06/25/20 Gabapentin [Neurontin] 800 mg PO TID 06/25/20 Hydrochlorothiazide mg PO QHS 06/25/20 Lisinopril mg PO QHS 06/25/20 Omeprazole 40 mg PO QHS 06/25/20 Umeclidinium Brm/Vilanterol Tr [Anoro Ellipta 62.5-25 Mcg INH] 1 each IH DAILY 06/25/20 History of Present Illiness History of Present Illness: KAELA BRANTLEY is a 55 year old female 55-year-old black female with progressive left knee pain and functional disability second osteoarthritis. Patient is admitted for elective left knee arthroplasty. Hospital Course Hospital Course: Patient is admitted through the operating where she undergoes uncomplicated left knee arthroplasty. She is returned to the floor in satisfactory issue. Patient complains of pain but makes modest progress with physical therapy on the day of surgery. Physical Exam Vital Signs: Temp Pulse Resp BP Pulse Ox 36.7 C 86 18 115/58 L 98 06/29/20 22:45 06/29/20 22:45 06/29/20 22:45 06/29/20 22:45 06/29/20 22:45 Intake & Output 06/29/20 06/30/20 07/01/20 06:59 06:59 06:59 Intake Total 0 5449 Output Total 25 Balance 0 5424 Weight 98 kg General appearance: PRESENT: no acute distress, mild distress, well-developed, well-nourished Head exam: PRESENT: normocephalic Respiratory exam: PRESENT: unlabored Cardiovascular exam: PRESENT: RRR Pulses: PRESENT: +1 pedal pulses bilateral Vascular exam: PRESENT: normal capillary refill GI/Abdominal exam: PRESENT: soft Musculoskeletal exam: PRESENT: other - Left knee dressing changed on the first postoperative morning. Underlying incision is well approximated makeda and is clean dry and intact. Results Laboratory Results: WBC 6.6 10^3/uL (4.0-10.5) 06/30/20 05:52 RBC 3.57 10^6/uL (3.72-5.28) L 06/30/20 05:52 Hgb 11.7 g/dL (12.0-15.5) L 06/30/20 05:52 Hct 34.3 % (36.0-47.0) L 06/30/20 05:52 MCV 96 fl (80-97) 06/30/20 05:52 MCH 32.8 pg (27.0-33.4) 06/30/20 05:52 MCHC 34.2 g/dL (32.0-36.0) 06/30/20 05:52 RDW 13.4 % (11.5-14.0) 06/30/20 05:52 Plt Count 192 10^3/uL (150-450) 06/30/20 05:52 Potassium 4.5 mmol/L (3.6-5.0) 06/29/20 07:40 COVID-19 Source See comment 06/25/20 11:20 COVID-19 (VIVIANE) Not Detected (Not Detect) 06/25/20 11:20 Impressions: Knee X-Ray 06/29/20 10:35 IMPRESSION: SATISFACTORY POSTOPERATIVE LEFT KNEE. Plan Plan of Treatment: Discharge home on a weightbearing as tolerated basis with home health services and DME. Follow-up with Dr. Abernathy [facility] for surgery in 2 weeks for staple removal. Stroke Is this a Stroke Patient?: No Stroke Pt being discharged on Anti-thrombolytic therapy?: Yes Acute Heart Failure Is this a Heart Failure Patient?: No
[2020-06-30] MEDS ORDERED: PRENATAL VITAMIN W DHA CAPSULE PO SCH (10:00)
[2020-06-30] MEDS ORDERED: (PENDING PHARMACY ID) (Umeclidinium Brm/Vilanterol Tr [Anoro Ellipta 62.5-25 Mcg Inh] 1 EA IH SCH (10:00)
[2020-06-30] MEDS ORDERED: ASPIRIN 81 MG TABLET, ENT COATED PO SCH (10:00)
[2020-06-30] MEDS: SENNOSIDES/DOCUSATE 8.6-50 MG 1 EACH TABLET PO SCH (11:57)
[2020-06-30 12:36] VITALS: BP 103/56
== END 2020-06-30 13:43 | disposition home health service (06) ==
LOC: OROUT 06:39 → EDSTATUS 09:00 → 4S 13:14 → OROUT 06-30 13:43
PROVIDERS: ATTEND Orthopaedic Surgery
DX: M17.0 Bilateral primary osteoarthritis of knee (principal); Z03.818 Encounter for observation for suspected exposure to other biological agents ruled out; K21.9 Gastro-esophageal reflux disease without esophagitis; F17.210 Nicotine dependence, cigarettes, uncomplicated; I10 Essential (primary) hypertension; F41.9 Anxiety disorder, unspecified; F32.9 Major depressive disorder, single episode, unspecified; J44.9 Chronic obstructive pulmonary disease, unspecified; M06.9 Rheumatoid arthritis, unspecified; Z79.899 Other long term (current) drug therapy; Z79.1 Long term (current) use of non-steroidal anti-inflammatories (NSAID)
CPT/HCPCS: 36415; 84132; 85027; 87635; 80048; 88305 ×2; 88311; 73560; 94799; 97530 ×4; 97110 ×2; 97116 ×2; 97163; 97535 ×2; 97167; 27447; C1776 ×4; J2250; J0690; J2370; J3490 ×5; J7060; J7050 ×2; J2704; J3370; J1741 ×2; J2795; C9803; 01402

== ENCOUNTER 2020-07-05 14:18 | Emergency (ER) | payer OTHER ==
--- NOTE | 2020-07-05 15:07 | ER Document Report ---
ED Neuro Symptoms/Deficit - General Chief Complaint: Numbness Stated Complaint: POST SURGICAL PAIN Time Seen by Provider: 07/05/20 15:05 Primary Care Provider: ENRIQUE ROMAN PA-C [Primary Care Provider] - Follow up as needed Mode of Arrival: Ambulatory Information source: Patient Notes: 07/05/20 14:38 - ED Nursing Note by [facility] [place] Num: [id number] : 1965 Patient Age: 55 Pt presents to the ED for c/o leg numbness. Pt reports L leg numbness that started today with warmth and pain. Pt is s/p L knee replacement on 06/29/[address] Madera. Pt called Dr. Madera's nurse and was instructed to come to the ED. Denies difficulty breathing or chest pain. Pt has been taking Oxycodone and Gabapentin at home for pain with some relief. Pt states she has been ambulating at home with a walker. Pt is A&Ox4, breaths e/u, NAD. MY NOTES 55-year-old black female arrives with her caregiver with chief complaint of 24 hours of tenderness along the medial thigh and calf with warmth. She has been using her four-point walker and walking deflated for 24 hours because of pain. She also complains of some numbness of her foot and edema of the left leg distal to the knee. She is status post TKR on Jun by Dr. Das. Patient reports she has been doing well since her surgery without any problems with appetite ADL skin rash sore throat falls or trauma. Patient denies any history of DVT or pulmonary emboli. Her right knee has some arthritis but has not had any surgery as yet. TRAVEL OUTSIDE OF THE [place] IN LAST 30 DAYS: No - HPI Patient complains to provider of: Difficulty standing, Difficulty walking Onset: Yesterday Awoke with symptoms: Yes Symptoms are: Worse/persistent Duration: Continues in ED Quality of pain: Achy Severity: Mild Pain Level: 1 Baseline Cognitive: Alert, oriented X 3 Baseline Gait: Uses a cane/walker New weakness: LLE - Related Data Allergies/Adverse Reactions: No Known Allergies Allergy (Verified 06/29/20 07:34) Past Medical History - General Information source: Patient - Social History Smoking Status: Current Every Day Smoker Cigarette use (# per day): Yes Chew tobacco use (# tins/day): No Smoking Education Provided: Yes Frequency of alcohol use: 40oz daily Drug Abuse: None Lives with: Family Family History: Reviewed & Not Pertinent Patient has suicidal ideation: No Patient has homicidal ideation: No - Past Medical History Cardiac Medical History: Reports: Hx Hypercholesterolemia, Hx Hypertension Denies: Hx Atrial Fibrillation, Hx Congestive Heart Failure, Hx Coronary Artery Disease, Hx Heart Attack, Hx Peripheral Vascular Disease, Hx Pulmonary Embolism, Hx Heart Murmur Pulmonary Medical History: Reports: Hx COPD Denies: Hx Asthma, Hx Bronchitis, Hx Pneumonia, Hx Respiratory Failure, Hx Sleep Apnea, Hx Tuberculosis Renal/ Medical History: Denies: Hx End Stage Renal Disease, Hx Kidney Stones, Hx Peritoneal Dialysis Malignancy Medical History: Denies: Hx Lung Cancer GI Medical History: Reports: Hx Gastroesophageal Reflux Disease. Denies: Hx Crohn's Disease, Hx Hiatal Hernia, Hx Irritable Bowel, Hx Liver Failure, Hx Pancreatitis, Hx Ulcer Musculoskeletal Medical History: Reports Hx Arthritis - Generalized , Denies Hx Fibromyalgia, Denies Hx Muscular Dystrophy Psychiatric Medical History: Reports: Hx Anxiety, Hx Depression Denies: Hx Bipolar Disorder, Hx Post Traumatic Stress Disorder, Hx Schizophrenia Traumatic Medical History: Denies: Hx Fractures Past Surgical History: Reports: Hx Orthopedic Surgery - L knee replacement, Hx Tubal Ligation. Denies: Hx Appendectomy, Hx Bowel Surgery, Hx Section, Hx Cholecystectomy, Hx Colostomy, Hx Coronary Artery Bypass Graft, Hx Gastric Bypass Surgery, Hx Herniorrhaphy, Hx Hysterectomy, Hx Mastectomy, Hx Pacemaker, Hx Tonsillectomy - Immunizations Hx Diphtheria, Pertussis, Tetanus Vaccination: Yes Review of Systems - Review of Systems Constitutional: No symptoms reported EENT: No symptoms reported Cardiovascular: No symptoms reported Respiratory: No symptoms reported Gastrointestinal: No symptoms reported Genitourinary: No symptoms reported Female Genitourinary: No symptoms reported Musculoskeletal: See HPI, Joint swelling, Leg swelling, Ankle swelling - L sided Skin: No symptoms reported Hematologic/Lymphatic: No symptoms reported Neurological/Psychological: No symptoms reported Physical Exam - Vital signs Vitals: Temp Pulse Resp BP Pulse Ox 98.3 F 97 20 118/58 L 98 07/05/20 14:29 07/05/20 14:29 07/05/20 14:29 07/05/20 14:29 07/05/20 14:29 Interpretation: Normal - General General appearance: Alert - HEENT Head: Normocephalic, Atraumatic Eyes: Normal Pupils: PERRL Mouth/Lips: Other Mucous membranes: Normal Pharynx: Normal Neck: Normal - Respiratory Respiratory status: No respiratory distress Chest status: Nontender Breath sounds: Normal Chest palpation: Normal - Cardiovascular Rhythm: Regular Heart sounds: Normal auscultation Murmur: No - Abdominal Inspection: Normal Distension: No distension Bowel sounds: Normal Tenderness: Nontender Organomegaly: No organomegaly - Rectal Hemorrhoids: Other - deferred - Genitourinary Bimanuel exam: Other - deferred - Back Back: Normal, Nontender - Extremities General upper extremity: Normal inspection, Nontender, Normal color, Normal ROM, Normal temperature General lower extremity: Tender - With surgical tape over the dorsal surface of the knee and distal thigh and proximal tib-fib berry area. There is erythema around these areas but mainly edema from the mid thigh to the toes of the left lower extremity. Patient has pitting edema of the left lower extremity., Edema, Other - Positive pulses bilateral dorsalis pedis. No: Chago's sign - Neurological Neuro grossly intact: Yes Cognition: Normal Orientation: AAOx4 [place] Coma Scale Eye Opening: Spontaneous [place] Coma Scale Verbal: Oriented [place] Coma Scale Motor: Obeys Commands [place] Coma Scale Total: 15 Speech: Normal Motor strength normal: LUE, RUE, LLE, RLE Sensory: Normal - Psychological Associated symptoms: Normal affect - Skin Skin Temperature: Warm Skin Moisture: Dry Skin Color: Normal Course - Vital Signs Vital signs: Temp Pulse Resp BP Pulse Ox 98.3 F 97 20 118/58 L 98 07/05/20 14:29 07/05/20 14:29 07/05/20 14:29 07/05/20 14:29 07/05/20 14:29 - Laboratory Result Diagrams: 07/05/20 15:40 07/05/20 15:40 Laboratory results interpreted by me: 07/05/20 07/05/20 15:40 15:40 RBC 2.97 L Hgb 9.8 L Hct 28.0 L Glucose 112 H Direct Bilirubin 0.5 H AST 49 H Albumin 3.4 L - Diagnostic Test Radiology reviewed: Reports reviewed - neg US and Xray Critical Care Note - Critical Care Note Comments: I attempted to connect with Dr. Das by telephone but was advised by telephone services sales representative the Dr. Best was icer air conditioning and spoke with him at 1815 and he advises antibiotics and he will see her in the office tomorrow. She may go home since the ultrasound was negative x-ray negative and CBC was within normal limits. Discharge - Discharge Clinical Impression: Swelling of left lower extremity Painful total knee replacement, left Qualifiers: Encounter type: initial encounter Qualified Code(s): T84.84XA - Pain due to internal orthopedic prosthetic devices, implants and grafts, initial encounter Condition: Stable Disposition: HOME, SELF-CARE Additional Instructions: Orthopedics Dr. Best was called and he advised attempting to stay off of the affected leg for at least 18 hours and follow-up in his office and Dr. Madera's office tomorrow. Also advised taking antibiotics and Tylenol for pain and try to keep leg elevated 10 degrees on pillow while laying down. Prescriptions: Levofloxacin [Levaquin 500 mg Tablet] 500 mg PO DAILY #10 tablet Referrals: ENRIQUE ROMAN PA-C [Primary Care Provider] - Follow up as needed KATY BEST DO [ACTIVE STAFF] - Follow up as needed
[2020-07-05] MEDS ORDERED: NORMAL SALINE 1000 ML 1,000 ML IV ONE (15:14)
[2020-07-05] MEDS ORDERED: VANCOMYCIN HCL INJ 1000 MG VIAL IV ONE (15:15)
[2020-07-05 16:04] LABS: ABSOLUTE BASOPHILS # (AUTO) 0.1 10^3/uL (0.0-0.2); ABSOLUTE EOSINOPHILS # (AUTO) 0.3 10^3/uL (0.0-0.6); ABSOLUTE LYMPHOCYTES (AUTO) 1.8 10^3/uL (0.5-4.7); ABSOLUTE MONOCYTES (AUTO) 0.5 10^3/uL (0.1-1.4); ABSOLUTE NEUT (AUTO) 3.8 10^3/uL (1.7-8.2); BASOPHILS % (AUTO) 1.3 % (0-2); EOSINOPHILS % (AUTO) 4.8 % (0-6); HEMOGLOBIN 9.8 g/dL (12.0-15.5); LYMPHOCYTES % (AUTO) 28.2 % (13-45); MEAN CORPUSCULAR HGB CONC 35.1 g/dL (32.0-36.0); MEAN CORPUSCULAR VOLUME 94 fl (80-97); MONOCYTES % (AUTO) 8.2 % (3-13); PLATELET COUNT 338 10^3/uL (150-450); RED BLOOD COUNT 2.97 10^6/uL (3.72-5.28); RED CELL DISTRIBUTION WIDTH 13.5 % (11.5-14.0); SEGMENTED NEUTROPHILS % (AUTO) 57.5 % (42-78); TOTAL CELLS COUNTED % (AUTO) 100 %; WHITE BLOOD COUNT 6.5 10^3/uL (4.0-10.5)
[2020-07-05 16:12] LABS: INTERNATIONAL RATION (INR) 0.97; PROTHROMBIN TIME 13.1 SEC (11.4-15.4)
[2020-07-05 16:13] LABS: PARTIAL THROMBOPLASTIN TIME 27.8 SEC (23.5-35.8)
[2020-07-05 16:23] LABS: ALBUMIN 3.4 g/dL (3.5-5.0); ALKALINE PHOSPHATASE 90 U/L (38-126); ANION GAP 5 (5-19); ASPARTATE AMINO TRANSFERASE 49 U/L (14-36); BILIRUBIN,DIRECT 0.5 mg/dL (0.0-0.4); BLOOD UREA NITROGEN 11 mg/dL (7-20); CALCIUM 9.1 mg/dL (8.4-10.2); CARBON DIOXIDE 28 mmol/L (22-30); CHLORIDE 105 mmol/L (98-107); GLUCOSE 112 mg/dL (75-110); POTASSIUM 4.9 mmol/L (3.6-5.0); TOTAL PROTEIN 6.8 g/dL (6.3-8.2)
--- NOTE | 2020-07-05 17:17 | RADIOLOGY REPORT (SQ) ---
EXAM DESCRIPTION: VENOUS UNILATERAL LOWER IMAGES COMPLETED DATE/TIME: 07/05/2020 5:06 pm REASON FOR STUDY: left leg numbness COMPARISON: None. TECHNIQUE: Dynamic and static cuevas scale and color images acquired of the left leg venous system. Se lected spectral images acquired with additional compression and augmentation maneuvers. The contralat eral common femoral vein and saphenofemoral junction were also imaged. Images stored on PACS. LIMITATIONS: None. FINDINGS: COMMON FEMORAL: Normal phasicity, compression and augmentation. No visualized echogenic ma terial on cuevas scale. No defects on color images. FEMORAL: Normal compression and augmentation. No visualized echogenic material on cuevas scale. No defe cts on color images. POPLITEAL: Normal compression, augmentation. No visualized echogenic material on cuevas scale. No defec ts on color images. CALF VESSELS: Normal compression, augmentation. No visualized echogenic material on cuevas scale. No de fects on color images. GSV and SSV: Normal compression, augmentation. No visualized echogenic material on cuevas scale. No def ects on color images. ANY DEEP VENOUS INSUFFICIENCY: Not evaluated. ANY EVIDENCE OF POPLITEAL CYST: No. OTHER: No other significant finding. CONTRALATERAL COMMON FEMORAL VEIN AND SAPHENOFEMORAL JUNCTION: Normal phasicity, compression and augmentation. No visualized echogenic material on cuevas scale. No de fects on color images. IMPRESSION: NO EVIDENCE DVT OR SVT IN THE LEFT LEG. TECHNICAL DOCUMENTATION: JOB ID: [id number] 2010 [employer]- All Rights Reserved Reading location - IP/workstation name: [email or web address]
--- NOTE | 2020-07-05 18:05 | RADIOLOGY REPORT (SQ) ---
EXAM DESCRIPTION: KNEE LEFT 3 VIEWS IMAGES COMPLETED DATE/TIME: 07/05/2020 5:44 pm REASON FOR STUDY: knee pain swelling COMPARISON: 06/29/2020. NUMBER OF VIEWS: Three views. TECHNIQUE: AP, lateral, and sunrise patella radiographic images acquired of the left knee. LIMITATIONS: None. FINDINGS: MINERALIZATION: Normal. BONES: No acute fracture or dislocation. Intact prosthesis. No worrisome bone lesions. SOFT TISSUES: Diffuse soft tissue swelling. Overlying skin makeda. OTHER: No other significant finding. IMPRESSION: DIFFUSE SOFT TISSUE SWELLING. INTACT PROSTHESIS. NO BONY FINDINGS. TECHNICAL DOCUMENTATION: JOB ID: [id number] 2010 [employer]- All Rights Reserved Reading location - IP/workstation name: [email or web address]
[2020-07-05] MEDS ORDERED: PIPERACILLIN/TAZOBACTAM 3.375 GM VIAL IV ONE (18:13)
[2020-07-05] MEDS ORDERED: LEVOFLOXACIN 750 MG TABLET PO ONE (18:37)
[2020-07-05 19:31] VITALS: BP 131/74
== END 2020-07-05 19:34 | disposition home or self-care (01) ==
LOC: ER 14:18
DX: T84.84XA Pain due to internal orthopedic prosthetic devices, implants and grafts, initial encounter (principal); Y79.8 Miscellaneous orthopedic devices associated with adverse incidents, not elsewhere classified; R60.0 Localized edema; M25.472 Effusion, left ankle; R20.0 Anesthesia of skin; I10 Essential (primary) hypertension; J44.9 Chronic obstructive pulmonary disease, unspecified; F17.210 Nicotine dependence, cigarettes, uncomplicated; Z96.652 Presence of left artificial knee joint
CPT/HCPCS: 99285; 96365; 36415; 87040; 85025; 85610; 85730; 80053; 93971; 73562; J7030; J3370